=== PATIENT | female | born 1960 | race Caucasian/White ===

== ENCOUNTER 2016-10-20 21:33 | Emergency (ER) | payer MEDICAID ==
[~2016-10-20] VITALS: Ht 167.6 cm; Wt 65.8 kg
[~2016-10-20 21:33] MED LIST: ALPR0.5T8 PO; LEVO112T5 PO; LEVO125T8 PO; PROP10TA10 PO
[2016-10-20 21:43] VITALS: BP 156/100; PULSE 73; RESP 18; TEMP 98.3; O2SAT 98
--- NOTE | 2016-10-20 21:45 | NUR ---
Patient to ER bed 7 to gown for evaluation. Side rails up.
--- NOTE | 2016-10-20 21:50 | NUR ---
Pt came to ED by self. A/Ox4, ambulatory. Pt c/o pain to right shoulder and right leg 11/30. Pt states she tripped and fell while walking. Denies CP, SOB, n/v/d. No acute distress noted. VSS.
--- NOTE | 2016-10-20 21:50 | NUR ---
ED MD Royal at bedside examining pt
--- NOTE | 2016-10-20 22:25 | NUR ---
Pt moved to ER room 4. Report given to ELSY Collins.
[2016-10-20] MEDS ORDERED: KETOROLAC TROMETHAMINE 30 MG VIAL IM ONE (22:30)
--- NOTE | 2016-10-20 22:50 | NUR ---
Posterior arm splint applied to R elbow. 2+ distal pulse noted. Capillary refill <2 seconds. Patient has ability to move non-splinted digits. Has sensation present to affected site. Skin color within normal limits. Applied for pain management control.
[2016-10-20 23:08] VITALS: BP 154/96; PULSE 75; RESP 17; TEMP 98.5; O2SAT 99
--- NOTE | 2016-10-20 23:08 | NUR ---
Patient given written and verbal discharge instructions and verbalizes understanding. ER MD discussed with patient the results and treatment provided. Patient in stable condition. ID arm band removed. Rx of Motrin given. Patient educated on pain management and to follow up with PMD. Pain Scale 1/10. Opportunity for questions provided and answered.
== END 2016-10-20 23:08 | disposition home or self-care (01) ==
LOC: SED 21:33
DX: S60.221A Contusion of right hand, initial encounter (principal); S40.011A Contusion of right shoulder, initial encounter; S80.01XA Contusion of right knee, initial encounter; S50.01XA Contusion of right elbow, initial encounter; J45.909 Unspecified asthma, uncomplicated; I10 Essential (primary) hypertension; E07.9 Disorder of thyroid, unspecified; Z88.5 Allergy status to narcotic agent; Z86.79 Personal history of other diseases of the circulatory system; W01.0XXA Fall on same level from slipping, tripping and stumbling without subsequent striking against object, initial encounter; Y93.89 Activity, other specified; Y99.8 Other external cause status; Y92.89 Other specified places as the place of occurrence of the external cause
CPT/HCPCS: 73000; 73060; 73080; 73130; 73564; 96372; 99284; J1885